=== PATIENT | female | born 1935 | race Caucasian/White ===

== ENCOUNTER → 2016-05-10 | Outpatient (CLI) | payer MEDICARE, BC ==
[2016-05-10] MEDS: Iopamidol 612 MG/ML 100 ML Bottle IVPUSH ONE (11:00)
[2016-05-10] MEDS: Sodium Chloride 0.9% 50 ML SDV FLUSH SCH (11:00)
== END ==
LOC: KA.CT 09:36
PROVIDERS: ATTEND Internal Medicine Hematology & Oncology
DX: R13.10 Dysphagia, unspecified (principal); K21.9 Gastro-esophageal reflux disease without esophagitis; C15.9 Malignant neoplasm of esophagus, unspecified; K22.8 Other specified diseases of esophagus; K57.90 Diverticulosis of intestine, part unspecified, without perforation or abscess without bleeding
CPT/HCPCS: 71260; 74177; Q9967

== ENCOUNTER 2018-05-26 17:00 | Inpatient (IN) | payer MEDICARE, BC ==
[2018-05-26] MEDS ORDERED: Sodium Chloride 0.9% 10 ML Syringe FLUSH PRN (17:51)
[2018-05-26] MEDS ORDERED: traMADol 50 MG Tab PO PRN (18:03)
[2018-05-26] MEDS: cefTRIAXone 1 GM Vial IVPUSH SCH (19:53)
[2018-05-27] MEDS: Acetaminophen 325 MG Tab PO PRN ×2 (06:01→20:56)
[2018-05-27 08:37] LABS: ANION GAP 12.6 mmol/L (5-15); CHLORIDE,CL 106 mmol/L (98-115); SODIUM,NA 140 mmol/L (136-145)
[2018-05-27] MEDS: Omeprazole 20 MG Cap.CR PO SCH (08:37)
[2018-05-27] MEDS: Cholecalciferol (Vitamin D3) 1,000 Unit Tab PO SCH (08:38)
[2018-05-27] MEDS: Escitalopram 10 MG Tab PO SCH (08:38)
--- NOTE | 2018-05-27 11:23 | PCM.PN ---
- General Info Date of Service: 05/27/18 Functional Status: Reports: Pain Controlled, Tolerating Diet. Denies: New Symptoms - Review of Systems General: Denies: Fever, Chills HEENT: Reports: Glasses Pulmonary: Denies: Shortness of Breath Cardiovascular: Reports: Edema. Denies: Chest Pain Musculoskeletal: Reports: Leg Pain (left medial ankle) Skin: Reports: Other (erythema and edema to left lower leg/ankle) Neurological: Denies: Headache Psychiatric: Reports: No Symptoms - Patient Data Vitals - Most Recent: Last Vital Signs Temp 98.1 F 05/27/18 09:00 Pulse 65 05/27/18 09:00 Resp 16 05/27/18 09:00 BP 88/54 L 05/27/18 09:00 Pulse Ox 96 05/27/18 09:00 Weight - Most Recent: 142 lb 12.8 oz I&O - Last 24 Hours: Intake & Output 05/26/18 05/27/18 05/27/18 22:59 06:59 14:59 Intake Total 240 350 Balance 240 350 Lab Results Last 24 Hours: Laboratory Results - last 24 hr 05/26/18 05/26/18 05/27/18 Range/Units 18:10 18:10 07:30 WBC (5.00-10.00) 10^3/uL RBC (3.80-5.50) 10^6/uL Hgb (12.0-16.0) g/dL Hct (37.0-47.0) % MCV (82.0-92.0) fL MCH (27.0-31.0) pg MCHC (32.0-36.0) g/dL RDW (11.5-14.5) % Plt Count (150-400) 10^3/uL MPV (7.4-10.4) fL Immature Gran % (Auto) (0.0-5.0) % Neut % (Auto) (50.0-70.0) % Lymph % (Auto) (20.0-40.0) % [place] % (Auto) (2.0-8.0) % Eos % (Auto) (1.0-3.0) % Baso % (Auto) (0.0-1.0) % Immature Gran # (Auto) (0.00-0.50) 10^3/uL Neut # (Auto) (2.50-7.00) 10^3/uL Lymph # (Auto) (1.00-4.00) 10^3/uL [place] # (Auto) (0.10-0.80) 10^3/uL Eos # (Auto) (0.10-0.30) 10^3/uL Baso # (Auto) (0.00-0.10) 10^3/uL ESR 60 H (0-20) mm/hr Sodium 140 (136-145) mmol/L Potassium 4.3 (3.3-5.3) mmol/L Chloride 106 (98-115) mmol/L Carbon Dioxide 25.7 (21.0-32.0) mmol/L Anion Gap 12.6 (5-15) mmol/L BUN 19 (6-25) mg/dL Creatinine 0.83 (0.51-1.17) mg/dL Est Cr Clr Drug Dosing 48.64 mL/min Estimated GFR (MDRD) > 60 mL/min Glucose 85 (75 - 99) mg/dL Lactic Acid 1.1 (0.4-2.0) mmol/L Calcium 8.8 (8.7-10.3) mg/dL Total Bilirubin 0.5 (0.2-1.0) mg/dL AST 19 (15-37) U/L ALT 18 (12-78) U/L Alkaline Phosphatase 93 (46-116) IU/L Total Protein 5.6 L (6.4-8.2) g/dL Albumin 2.71 L (3.00-4.80) g/dL 05/27/18 Range/Units 07:30 WBC 5.98 (5.00-10.00) 10^3/uL RBC 3.28 L (3.80-5.50) 10^6/uL Hgb 10.7 L (12.0-16.0) g/dL Hct 31.9 L (37.0-47.0) % MCV 97.3 H (82.0-92.0) fL MCH 32.6 H (27.0-31.0) pg MCHC 33.5 (32.0-36.0) g/dL RDW 13.3 (11.5-14.5) % Plt Count 147 L (150-400) 10^3/uL MPV 10.9 H (7.4-10.4) fL Immature Gran % (Auto) 0.2 (0.0-5.0) % Neut % (Auto) 73.7 H (50.0-70.0) % Lymph % (Auto) 15.2 L (20.0-40.0) % [place] % (Auto) 8.9 H (2.0-8.0) % Eos % (Auto) 1.7 (1.0-3.0) % Baso % (Auto) 0.3 (0.0-1.0) % Immature Gran # (Auto) 0.01 (0.00-0.50) 10^3/uL Neut # (Auto) 4.41 (2.50-7.00) 10^3/uL Lymph # (Auto) 0.91 L (1.00-4.00) 10^3/uL [place] # (Auto) 0.53 (0.10-0.80) 10^3/uL Eos # (Auto) 0.10 (0.10-0.30) 10^3/uL Baso # (Auto) 0.02 (0.00-0.10) 10^3/uL ESR (0-20) mm/hr Sodium (136-145) mmol/L Potassium (3.3-5.3) mmol/L Chloride (98-115) mmol/L Carbon Dioxide (21.0-32.0) mmol/L Anion Gap (5-15) mmol/L BUN (6-25) mg/dL Creatinine (0.51-1.17) mg/dL Est Cr Clr Drug Dosing mL/min Estimated GFR (MDRD) mL/min Glucose (75 - 99) mg/dL Lactic Acid (0.4-2.0) mmol/L Calcium (8.7-10.3) mg/dL Total Bilirubin (0.2-1.0) mg/dL AST (15-37) U/L ALT (12-78) U/L Alkaline Phosphatase (46-116) IU/L Total Protein (6.4-8.2) g/dL Albumin (3.00-4.80) g/dL Med Orders - Current: Current Medications Acetaminophen (Tylenol) 650 mg PO Q4H PRN PRN Reason: Pain Last Admin: 05/27/18 06:01 Dose: 650 mg Ceftriaxone Sodium (Rocephin) 1 gm IVPUSH Q24H REPLACED BY [facility] Last Admin: 05/26/18 19:53 Dose: 1 gm Cholecalciferol (Vitamin D3) 2,000 units PO DAILY REPLACED BY [facility] Last Admin: 05/27/18 08:38 Dose: 2,000 units Escitalopram Oxalate (Lexapro) 10 mg PO DAILY REPLACED BY [facility] Last Admin: 05/27/18 08:38 Dose: 10 mg Omeprazole (Omeprazole) 20 mg PO DAILY REPLACED BY [facility] Last Admin: 05/27/18 08:37 Dose: 20 mg Sodium Chloride (Saline Flush) 10 ml FLUSH Q8HR PRN PRN Reason: keep vein open Tramadol HCl (Ultram) 50 mg PO Q6H PRN PRN Reason: leg pain Last Admin: 05/27/18 00:15 Dose: 50 mg - Exam Quality Assessment: DVT Prophylaxis (score of 6-lovenox 40 mg SQ daily). No: Supplemental Oxygen, Skin Breakdown General: Alert, Oriented, Cooperative, No Acute Distress Lungs: Clear to Auscultation, Normal Respiratory Effort Cardiovascular: Regular Rate, Regular Rhythm, No Murmurs Extremities: Other (left lower leg (mid calf to dorsal midfoot) tenderness elicited with 1+ edema and moderate erythema; erythema present to mostly medial malleolus, no streaking.) Skin: Warm, Dry, Other (see extremity documentation). No: Ecchymosis Wound/Incisions: Erythema Improving, Other (No open wound present) Neurological: Normal Speech Psy/Mental Status: Alert, Normal Affect, Normal Mood - Problem List Review Problem List Initiated/Reviewed/Updated: Yes - My Orders Last 24 Hours: My Active Orders 05/26/18 17:51 Patient Status [ADT] Routine Oxygen Therapy [RC] .PRN Up With Assistance [RC] ASDIRECTED VTE/DVT Education [RC] PER UNIT ROUTINE Vital Signs [RC] 1900,2300,0300,0700,0900,1100,1500 Sodium Chloride 0.9% [Saline Flush] 10 ml FLUSH Q8HR PRN Saline Lock Insert [OM.PC] Routine Resuscitation Status Routine 05/26/18 17:56 Intake and Output [RC] 1400,2200,0600 05/26/18 18:03 traMADol [Ultram] 50 mg PO Q6H PRN 05/26/18 18:15 cefTRIAXone [Rocephin] 1 gm IVPUSH Q24H 05/26/18 Dinner Regular Diet [DIET] 05/27/18 05:26 Acetaminophen [Tylenol] 650 mg PO Q4H PRN 05/27/18 09:00 Cholecalciferol (Vitamin D3) [Vitamin D3] 2,000 units PO DAILY Escitalopram [Lexapro] 10 mg PO DAILY Omeprazole 20 mg PO DAILY 05/28/18 05:11 CBC WITH AUTO DIFF [HEME] AM - Plan Plan:: HPI: This is an 82 year old female who presented to the [facility] yesterday with concerns of worsening redness, swelling, and pain to her left inner ankle. Symptoms initially started on Tuesday night (05/20/18) where she awoke in the middle of the night and noted it was painful and red. No history of injury or trauma. She was first evaluated on 05/22/18 by Mary Jackson CNP at the clinic and found to have a normal ESR and uric acid level. She was given naproxen to take BID. She had been doing this, but the pain and redness were increasing. Patient was evaluated by Autumn Zaragoza PA-C yesterday and found to have an ESR of 52, CRP 156.4, WBC 7.5 no left shift, GFR 55, Creatinine 0.97. X- ray of the ankle revealed no acute fracture or dislocation, extensive soft tissue swelling, degenerative changes of tarsal bones; if ongoing symptoms repeat x-ray in 7-10 days. Patient was admitted for IV antibiotics and further monitoring. Update on rounds: Patient feels the redness has improved some around the ankle, but has moved up the leg slightly. No fevers or chills. Did experience some pain last night for which she tried tramadol with no relief. She took tylenol around 0500 and reported improvement in pain. Primary Assessment/Plan: Acute left ankle cellulitis. WBC 5.8 with left shift. CMP unremarkable. ESR 60 and lactic acid 1.1 on admission. Nursing to awa area with marker. Continue IV rocephin 1 gm daily. Continue tylenol PRN for pain. Repeat CBC, ESR, and CRP in AM. Secondary Assessment/Plan: History of squamous cell carcinoma of esophagus. Not currently on any treatments , however did consult with acquisition cost estimator oncologist, Dr. De Jesus, regarding current status. He notes that since she has been in remission for a few years she can be treated as a "normal" cellulitis patient. HTN, history. Anxiety. Continue lexapro. GERD. Continue omeprazole. Osteoporosis. On prolia and vitamin D. Calcium 8.8. Consider adding calcium supplementation. DEXA (2017) osteopenia. DVT prophylaxis: Score 6. Lovenox 40 mg SQ daily. Overall plan: Continue with IV rocephin. Nursing to awa area of redness for continued monitoring. Repeat labs in AM.
[2018-05-27] MEDS: Enoxaparin 40 MG/0.4 ML Syringe SUBCUT SCH (14:54)
[2018-05-27] MEDS: cefTRIAXone 1 GM Vial IVPUSH SCH (18:07)
[2018-05-28] MEDS: Omeprazole 20 MG Cap.CR PO SCH (08:34)
[2018-05-28] MEDS: Escitalopram 10 MG Tab PO SCH (08:35)
[2018-05-28] MEDS: Cholecalciferol (Vitamin D3) 1,000 Unit Tab PO SCH (08:35)
[2018-05-28] MEDS: Enoxaparin 40 MG/0.4 ML Syringe SUBCUT SCH (12:14)
--- NOTE | 2018-05-28 12:18 | PCM.PN ---
- General Info Date of Service: 05/28/18 Functional Status: Reports: Pain Controlled, Tolerating Diet, Urinating - Review of Systems General: Denies: Fever, Chills Pulmonary: Denies: Shortness of Breath Cardiovascular: Reports: Edema (LLE). Denies: Chest Pain Skin: Reports: Other (left medial ankle: erythema improving, edema worsening; left calf not as "tight") Psychiatric: Reports: Anxiety - Patient Data Vitals - Most Recent: Last Vital Signs Temp 98.3 F 05/28/18 11:00 Pulse 71 05/28/18 11:00 Resp 16 05/28/18 11:00 BP 115/70 05/28/18 11:00 Pulse Ox 98 05/28/18 11:00 Weight - Most Recent: 142 lb 12.8 oz I&O - Last 24 Hours: Intake & Output 05/27/18 05/28/18 05/28/18 22:59 06:59 14:59 Intake Total 240 120 Balance 240 120 Lab Results Last 24 Hours: Laboratory Results - last 24 hr 05/28/18 05/28/18 Range/Units 08:00 08:00 WBC 4.41 L (5.00-10.00) 10^3/uL RBC 3.62 L (3.80-5.50) 10^6/uL Hgb 11.9 L (12.0-16.0) g/dL Hct 35.5 L (37.0-47.0) % MCV 98.1 H (82.0-92.0) fL MCH 32.9 H (27.0-31.0) pg MCHC 33.5 (32.0-36.0) g/dL RDW 13.0 (11.5-14.5) % Plt Count 158 (150-400) 10^3/uL MPV 11.0 H (7.4-10.4) fL Immature Gran % (Auto) 0.0 (0.0-5.0) % Neut % (Auto) 69.4 (50.0-70.0) % Lymph % (Auto) 17.0 L (20.0-40.0) % [place] % (Auto) 10.9 H (2.0-8.0) % Eos % (Auto) 2.5 (1.0-3.0) % Baso % (Auto) 0.2 (0.0-1.0) % Immature Gran # (Auto) 0.00 (0.00-0.50) 10^3/uL Neut # (Auto) 3.06 (2.50-7.00) 10^3/uL Lymph # (Auto) 0.75 L (1.00-4.00) 10^3/uL [place] # (Auto) 0.48 (0.10-0.80) 10^3/uL Eos # (Auto) 0.11 (0.10-0.30) 10^3/uL Baso # (Auto) 0.01 (0.00-0.10) 10^3/uL ESR 60 H (0-20) mm/hr C-Reactive Protein 16.0 H (0.0-0.9) mg/dL Med Orders - Current: Current Medications Acetaminophen (Tylenol) 650 mg PO Q4H PRN PRN Reason: Pain Last Admin: 05/27/18 20:56 Dose: 650 mg Cholecalciferol (Vitamin D3) 2,000 units PO DAILY [facility] Last Admin: 05/28/18 08:35 Dose: 2,000 units Enoxaparin Sodium (Lovenox) 40 mg SUBCUT Q24H [facility] Last Admin: 05/27/18 14:54 Dose: 40 mg Escitalopram Oxalate (Lexapro) 10 mg PO DAILY [facility] Last Admin: 05/28/18 08:35 Dose: 10 mg Omeprazole (Omeprazole) 20 mg PO DAILY [facility] Last Admin: 05/28/18 08:34 Dose: 20 mg Sodium Chloride (Saline Flush) 10 ml FLUSH Q8HR PRN PRN Reason: keep vein open Last Admin: 05/27/18 18:14 Dose: 10 ml Tramadol HCl (Ultram) 50 mg PO Q6H PRN PRN Reason: leg pain Last Admin: 05/27/18 00:15 Dose: 50 mg Trimethoprim/Sulfamethoxazole (Septra Ds) 1 tab PO BID [facility] Discontinued Medications Ceftriaxone Sodium (Rocephin) 1 gm IVPUSH Q24H [facility] Last Admin: 05/27/18 18:07 Dose: 1 gm - Exam Quality Assessment: DVT Prophylaxis (Lovenox). No: Supplemental Oxygen General: Alert, Oriented, Cooperative, No Acute Distress Lungs: Clear to Auscultation, Normal Respiratory Effort Cardiovascular: Regular Rate, Regular Rhythm, No Murmurs Extremities: Other (left medial ankle: mild erythema, blanches, moderate edema that extends down to toes and up to mid tibia/fibula, no streaking, warm to touch, no open wound or drainage, tender, ROM intact) Skin: Warm, Dry, Other (see above) Wound/Incisions: Other (No wound.) Neurological: Normal Speech Psy/Mental Status: Alert, Normal Affect, Anxious - Problem List Review Problem List Initiated/Reviewed/Updated: Yes - My Orders Last 24 Hours: My Active Orders 05/27/18 12:00 Enoxaparin [Lovenox] 40 mg SUBCUT Q24H 05/28/18 12:15 Sulfamethoxazole/Trimethoprim [Septra DS] 1 tab PO BID 05/29/18 05:11 CBC WITH AUTO DIFF [HEME] AM ESR [SEDIMENTATION RATE MANUAL] [HEME] AM - Plan Plan:: HPI: This is an 82 year old female who presented to the [facility] yesterday with concerns of worsening redness, swelling, and pain to her left inner ankle. Symptoms initially started on Tuesday night (05/20/18) where she awoke in the middle of the night and noted it was painful and red. No history of injury or trauma. She was first evaluated on 05/22/18 by Mary Jackson CNP at the clinic and found to have a normal ESR and uric acid level. She was given naproxen to take BID. She had been doing this, but the pain and redness were increasing. Patient was evaluated by Autumn Zaragoza PA-C yesterday and found to have an ESR of 52, CRP 156.4, WBC 7.5 no left shift, GFR 55, Creatinine 0.97. X- ray of the ankle revealed no acute fracture or dislocation, extensive soft tissue swelling, degenerative changes of tarsal bones; if ongoing symptoms repeat x-ray in 7-10 days. Patient was admitted for IV antibiotics and further monitoring. Update on rounds: Patient reports she did have a low-grade fever last night ( 99.1-100.2F) but it came down without tylenol. She feels the redness has improved, but the swelling has worsened. She is anxious about becoming septic. Primary Assessment/Plan: Acute left ankle cellulitis. WBC 4.0, no left shift. ESR same at 60. CRP 16.0, however different test compared to outpatient clinic which noted a CRP of 156.4. Will de-escalate antibiotic today from rocephin IV to bactrim-DS 1 tab po BID in hopes of providing more broad spectrum coverage and the intent of discharging tomorrow. Repeat CBC, CRP, and ESR in AM. Secondary Assessment/Plan: History of squamous cell carcinoma of esophagus. Not currently on any treatments , however did consult with ui application developer oncologist, Dr. De Jesus, regarding current status. He notes that since she has been in remission for a few years she can be treated as a "normal" cellulitis patient. HTN, history. Anxiety. Continue lexapro. GERD. Continue omeprazole. Osteoporosis. On prolia and vitamin D. Calcium 8.8. Consider adding calcium supplementation. DEXA (2017) osteopenia. DVT prophylaxis: Score 6. Lovenox 40 mg SQ daily. Overall plan: De-escalate antibiotics to oral and monitor overnight with possible discharge to home tomorrow.
[2018-05-28] MEDS: Sulfamethoxazole/Trimethoprim 800-160 MG Tab PO SCH ×2 (13:12→19:59)
[2018-05-28] MEDS: Acetaminophen 325 MG Tab PO PRN (20:54)
[2018-05-29] MEDS: Escitalopram 10 MG Tab PO SCH (08:52)
[2018-05-29] MEDS: Sulfamethoxazole/Trimethoprim 800-160 MG Tab PO SCH (08:52)
[2018-05-29] MEDS: Cholecalciferol (Vitamin D3) 1,000 Unit Tab PO SCH (08:52)
[2018-05-29] MEDS: Omeprazole 20 MG Cap.CR PO SCH (08:52)
--- NOTE | 2018-05-29 10:20 | PCM.DCSUM1 ---
Discharge Summary - Hospital Course Brief History: This is an 82 year old female who presented to the [facility] with concerns of worsening left ankle erythema, edema, and pain. Symptoms initially started on Tuesday night (05/20/18) where she awoke in the middle of the night and noted it was painful and red. No history of injury or trauma. She was first evaluated on 05/22/18 by Mary Jackson CNP at the clinic and found to have a normal ESR and uric acid level. She was given naproxen to take BID. She had been doing this, but the pain and redness were increasing. Patient was evaluated by Autumn Zaragoza PA-C yesterday and found to have an ESR of 52, CRP 156.4, WBC 7.5 no left shift, GFR 55, Creatinine 0.97. X-ray of the ankle revealed no acute fracture or dislocation, extensive soft tissue swelling, degenerative changes of tarsal bones; if ongoing symptoms repeat x-ray in 7-10 days. Patient was admitted for IV antibiotics and further monitoring. - Discharge Data Discharge Date: 05/29/18 Discharge Disposition: Home, Self-Care 01 Condition: Good - Patient Summary/Data Complications: None Consults: Dr. De Jesus, [place] oncologist Labs Pending at D/C: None - Patient Instructions Diet: Regular Diet as Tolerated Activity: As Tolerated, Elevate Extremity Showering/Bathing: May Shower Notify Provider of: Fever, Increased Pain, Swelling and Redness (increased amount), Drainage (or open wound) - Discharge Plan *PRESCRIPTION DRUG MONITORING PROGRAM REVIEWED*: Not Applicable *COPY OF PRESCRIPTION DRUG MONITORING REPORT IN PATIENT AMANDA: Not Applicable Prescriptions/Med Rec: Sulfamethoxazole/Trimethoprim [Septra DS] 1 tab PO BID 7 Days #14 tablet Home Medications: Home Meds Escitalopram [Lexapro] 10 mg PO DAILY 01/26/14 [History] Omeprazole Magnesium [Prilosec Otc] 20 mg PO DAILY 05/03/16 [History] Cholecalciferol (Vitamin D3) [Vitamin D3] 2,000 unit PO DAILY 05/26/18 [History] Denosumab [Prolia] 60 mg SQ ASDIRECTED 05/26/18 [History] Acetaminophen [Tylenol] 650 mg PO Q4H PRN tablet 05/29/18 [Rx] Sulfamethoxazole/Trimethoprim [Septra DS] 1 tab PO BID 7 Days #14 tablet [Rx] Referrals: Autumn Zaragoza PA-C [Primary Care Provider] - Colleen Rivera MANUFACTURER'S SERVICE REPRESENTATIVE [Nurse Practitioner] - (Follow-up with myself or Autumn Zaragoza PA-C at the [facility] this week. ) - Discharge Summary/Plan Comment DC Time >30 min.: Yes Discharge Summary/Plan Comment: Date of admission: 05/26/18 Date of discharge: 05/29/18 Admitting diagnosis: Primary: Left medial ankle cellulitis Secondary: History of squamous cell carcinoma of esophagus, history of HTN, anxiety, GERD, osteoporosis Final diagnosis: Primary: Left medial ankle cellulitis, improving Secondary: History of squamous cell carcinoma of esophagus, history of HTN, anxiety, GERD, osteoporosis Procedures performed: None Hospital Course: The patient's hospital course progressed as expected. Patient received IV rocephin 1 gm daily x 2 doses, and then was switched to oral Bactrim the day prior to discharge with notable improvement in erythema and edema the day of discharge. Patient had low grade fevers and the highest was 100.7F. She required tylenol for pain and had relief. She remained hemodynamically stable during her stay. She was placed on lovenox for DVT prophylaxis. Discharge labs included WBC 4.45 with no left shift, ESR 55. New medications on discharge: -Bactrim DS 1 tab po BID x 7 days -Tylenol 650 mg po every 4 hours PRN pain Changes to home medications on discharge: None Regular home medications on discharge: -Lexapro 10 mg po daily -Omeprazole 20 mg po daily -Vitamin D3 2000 units po daily -Prolia 60 mg SQ q6 months Condition, Treatment, and Final Disposition: The patient is in stable condition at the time of discharge. She will be discharged home today with her son nearby. The patient will be seen in follow-up at the [facility] this week. Considerations at follow-up would include repeating ESR and CRP levels and considering adding calcium 600 mg po BID to current regimen for osteopenia. - General Info Functional Status: Reports: Pain Controlled, Ambulating, Urinating. Denies: New Symptoms - Review of Systems General: Reports: Fever (low grade 100.7F overnight). Denies: Weakness, Fatigue , Malaise, Chills HEENT: Denies: Headaches Pulmonary: Denies: Shortness of Breath Cardiovascular: Denies: Chest Pain Musculoskeletal: Reports: Other (left lower leg, medial ankle, and top of foot pain, erythema, and edema--improving) Skin: Reports: Other (erythema of left lower leg and ankle improving) Neurological: Denies: Dizziness, Headache Psychiatric: Reports: No Symptoms - Patient Data Vitals - Most Recent: Last Vital Signs Temp 99.1 F 05/29/18 06:27 Pulse 60 05/29/18 06:27 Resp 18 05/29/18 06:27 BP 98/54 L 05/29/18 06:27 Pulse Ox 98 05/29/18 06:27 Weight - Most Recent: 142 lb 12.8 oz I&O - Last 24 hours: Intake & Output 05/28/18 05/29/18 05/29/18 22:59 06:59 14:59 Intake Total 350 120 Balance 350 120 Lab Results - Last 24 hrs: Laboratory Results - last 24 hr 05/28/18 05/29/18 Range/Units 08:00 07:25 WBC 4.45 L (5.00-10.00) 10^3/uL RBC 3.84 (3.80-5.50) 10^6/uL Hgb 12.5 (12.0-16.0) g/dL Hct 38.0 (37.0-47.0) % MCV 99.0 H (82.0-92.0) fL MCH 32.6 H (27.0-31.0) pg MCHC 32.9 (32.0-36.0) g/dL RDW 13.0 (11.5-14.5) % Plt Count 189 (150-400) 10^3/uL MPV 10.3 (7.4-10.4) fL Immature Gran % (Auto) 0.0 (0.0-5.0) % Neut % (Auto) 60.7 (50.0-70.0) % Lymph % (Auto) 22.5 (20.0-40.0) % [place] % (Auto) 12.8 H (2.0-8.0) % Eos % (Auto) 3.6 H (1.0-3.0) % Baso % (Auto) 0.4 (0.0-1.0) % Immature Gran # (Auto) 0.00 (0.00-0.50) 10^3/uL Neut # (Auto) 2.70 (2.50-7.00) 10^3/uL Lymph # (Auto) 1.00 (1.00-4.00) 10^3/uL [place] # (Auto) 0.57 (0.10-0.80) 10^3/uL Eos # (Auto) 0.16 (0.10-0.30) 10^3/uL Baso # (Auto) 0.02 (0.00-0.10) 10^3/uL ESR 60 H 55 H (0-20) mm/hr Med Orders - Current: Current Medications Acetaminophen (Tylenol) 650 mg PO Q4H PRN PRN Reason: Pain Last Admin: 05/28/18 20:54 Dose: 650 mg Cholecalciferol (Vitamin D3) 2,000 units PO DAILY [facility] Last Admin: 05/29/18 08:52 Dose: 2,000 units Enoxaparin Sodium (Lovenox) 40 mg SUBCUT Q24H [facility] Last Admin: 05/28/18 12:14 Dose: 40 mg Escitalopram Oxalate (Lexapro) 10 mg PO DAILY [facility] Last Admin: 05/29/18 08:52 Dose: 10 mg Omeprazole (Omeprazole) 20 mg PO DAILY [facility] Last Admin: 05/29/18 08:52 Dose: 20 mg Sodium Chloride (Saline Flush) 10 ml FLUSH Q8HR PRN PRN Reason: keep vein open Last Admin: 05/27/18 18:14 Dose: 10 ml Tramadol HCl (Ultram) 50 mg PO Q6H PRN PRN Reason: leg pain Last Admin: 05/27/18 00:15 Dose: 50 mg Trimethoprim/Sulfamethoxazole (Septra Ds) 1 tab PO BID [facility] Last Admin: 05/29/18 08:52 Dose: 1 tab Discontinued Medications Ceftriaxone Sodium (Rocephin) 1 gm IVPUSH Q24H [facility] Last Admin: 05/27/18 18:07 Dose: 1 gm - Exam Quality Assessment: Reports: DVT Prophylaxis (lovenox). Denies: Supplemental Oxygen, Skin Breakdown General: Reports: Alert, Oriented, Cooperative, No Acute Distress Lungs: Reports: Clear to Auscultation, Normal Respiratory Effort Cardiovascular: Reports: Regular Rate, Regular Rhythm, No Murmurs Extremities: Other (Mild erythema of left lower leg from mid-yanez to mid foot with most prominent erythema at medial ankle; moderate edema at ankle and foot, no open wound, tender, warm to touch. ) Skin: Reports: Warm, Dry, Other (see above) Neurological: Reports: Normal Speech Psy/Mental Status: Reports: Alert, Normal Affect, Normal Mood
[2018-05-29 11:40] VITALS: BP 94/54
[2018-05-29] MEDS: Enoxaparin 40 MG/0.4 ML Syringe SUBCUT SCH (12:05)
== END 2018-05-29 13:15 | disposition home or self-care (01) | DRG 603 ==
LOC: KA.MS 17:00
PROVIDERS: ADMIT Physician Assistant Medical; ATTEND Family Medicine
DX: L03.116 Cellulitis of left lower limb (principal); F41.9 Anxiety disorder, unspecified; M85.80 Other specified disorders of bone density and structure, unspecified site; M81.0 Age-related osteoporosis without current pathological fracture; I10 Essential (primary) hypertension; K21.9 Gastro-esophageal reflux disease without esophagitis; Z79.899 Other long term (current) drug therapy; Z85.01 Personal history of malignant neoplasm of esophagus; Z88.1 Allergy status to other antibiotic agents; Z88.5 Allergy status to narcotic agent
CPT/HCPCS: 36415; 80053; 83605; 85025; 85651; 86140; A9270-GY; J0696; J1650

== ENCOUNTER 2022-02-22 13:32 | Emergency (ER) | payer MEDICARE, BC ==
[2022-02-22] MEDS ORDERED: Sodium Chloride 0.9% 10 ML Syringe FLUSH PRN (13:47)
[2022-02-22 14:00] VITALS: BP 165/84; PULSE 84
[2022-02-22 14:25] LABS: ANION GAP 8.8 mmol/L (5-15)
== END 2022-02-22 15:00 | disposition home or self-care (01) ==
LOC: KA.ED 13:32
DX: R42 Dizziness and giddiness (principal); Z88.5 Allergy status to narcotic agent; Z88.1 Allergy status to other antibiotic agents
CPT/HCPCS: 36415; 80053; 84484; 85025; 93005; 93010; 99284; J3490

== ENCOUNTER 2023-12-13 06:16 | Emergency (ER) | payer MEDICARE, BC ==
[2023-12-13 06:43] LABS: BASOPHILS ABSOLUTE AUTO 0.01 10^3/uL (0.00-0.10); BASOPHILS PERCENT AUTO 0.1 % (0.0-1.0); HEMATOCRIT 39.4 % (37.0-47.0); HEMOGLOBIN 12.8 g/dL (12.0-16.0); IMMATURE GRAN ABSOLUTE AUTO 0.02 10^3/uL (0.00-0.50); IMMATURE GRAN PERCENT AUTO 0.2 % (0.0-5.0); LYMPHOCYTES PERCENT AUTO 8.5 % (20.0-40.0); MEAN CORPUSCULAR HEMOGLOBIN 32.5 pg (27.0-31.0); MEAN CORPUSCULAR HGB CONC 32.5 g/dL (32.0-36.0); MONOCYTES ABSOLUTE AUTO 0.45 10^3/uL (0.10-0.80); MONOCYTES PERCENT AUTO 4.8 % (2.0-8.0); NEUTROPHILS ABSOLUTE AUTO 8.16 10^3/uL (2.50-7.00); NEUTROPHILS PERCENT AUTO 86.4 % (50.0-70.0); PLATELET COUNT,PLT 204 10^3/uL (150-400); RED BLOOD CELL COUNT 3.94 10^6/uL (3.80-5.50); RED CELL DISTRIBUTION WIDTH 14.1 % (11.5-14.5); WHITE BLOOD CELL COUNT,WBC 9.44 10^3/uL (5.00-10.00)
[2023-12-13 06:47] VITALS: BP 114/44
[2023-12-13 06:55] VITALS: PULSE 35
[2023-12-13 07:02] LABS: ALBUMIN 3.18 g/dL (3.40-5.00); ANION GAP 16.7 mmol/L (5-15); BILIRUBIN TOTAL 1.1 mg/dL (0.2-1.0); CALCIUM 9.5 mg/dL (8.7-10.3); CARBON DIOXIDE,CO2 25.2 mmol/L (21.0-32.0); CREATININE 1.84 mg/dL (0.51-1.17); EST CRCL DRUG DOSING (CG) 17.36 mL/min; POTASSIUM,K 4.9 mmol/L (3.5-5.1); PROTEIN TOTAL,TP 6.6 g/dL (6.4-8.2)
[2023-12-13] MEDS ORDERED: Sodium Chloride 0.9% 10 ML Syringe FLUSH PRN ×2 (07:10→08:20)
[2023-12-13] MEDS: Sodium Chloride 0.9% 1,000 ML IV SCH (07:29)
[2023-12-13 07:34] LABS: INFLUENZA A NAA NEGATIVE (NEGATIVE); INFLUENZA B NAA NEGATIVE (NEGATIVE); RESPIRATORY SYNCYTIAL VIR NAA NEGATIVE (NEGATIVE)
[2023-12-13 07:35] LABS: CORONAVIRUS COVID-19 NAA NEGATIVE (NEGATIVE)
[2023-12-13] MEDS: Atropine 0.1 MG/ML 10 ML Syringe IVPUSH ONE (07:40)
[2023-12-13] MEDS: DOPamine/Dextrose 5%-Water 400 MG/250 ML BAG IV SCH (07:53)
[2023-12-13] MEDS: Ondansetron 4 MG/2 ML SDV IVPUSH ONE (08:04)
== END 2023-12-13 08:44 ==
LOC: KA.ED 06:16
DX: I44.2 Atrioventricular block, complete (principal); R53.1 Weakness; R42 Dizziness and giddiness; R79.89 Other specified abnormal findings of blood chemistry; Z79.899 Other long term (current) drug therapy; Z88.5 Allergy status to narcotic agent; Z88.1 Allergy status to other antibiotic agents
CPT/HCPCS: 0241U; 71045; 80053; 84484; 85025; 93010; 96365; 96375; 99284; 99285-25; J0461; J1265; J2405; J7030

== ENCOUNTER 2023-12-19 11:34 | Emergency (ER) | payer MEDICARE, BC ==
[2023-12-19 12:16] LABS: BASOPHILS ABSOLUTE AUTO 0.02 10^3/uL (0.00-0.10); BASOPHILS PERCENT AUTO 0.3 % (0.0-1.0); EOSINOPHILS ABSOLUTE AUTO 0.12 10^3/uL (0.10-0.30); HEMATOCRIT 37.1 % (37.0-47.0); HEMOGLOBIN 12.1 g/dL (12.0-16.0); IMMATURE GRAN ABSOLUTE AUTO 0.02 10^3/uL (0.00-0.50); IMMATURE GRAN PERCENT AUTO 0.3 % (0.0-5.0); LYMPHOCYTES ABSOLUTE AUTO 0.88 10^3/uL (1.00-4.00); LYMPHOCYTES PERCENT AUTO 14.8 % (20.0-40.0); MEAN CORPUSCULAR HGB CONC 32.6 g/dL (32.0-36.0); MEAN CORPUSCULAR VOLUME 98.1 fL (82.0-92.0); MEAN PLATELET VOLUME 9.8 fL (7.4-10.4); MONOCYTES ABSOLUTE AUTO 0.83 10^3/uL (0.10-0.80); MONOCYTES PERCENT AUTO 13.9 % (2.0-8.0); NEUTROPHILS ABSOLUTE AUTO 4.09 10^3/uL (2.50-7.00); NEUTROPHILS PERCENT AUTO 68.7 % (50.0-70.0); PLATELET COUNT,PLT 217 10^3/uL (150-400); RED BLOOD CELL COUNT 3.78 10^6/uL (3.80-5.50); RED CELL DISTRIBUTION WIDTH 13.9 % (11.5-14.5); WHITE BLOOD CELL COUNT,WBC 5.96 10^3/uL (5.00-10.00)
[2023-12-19 12:35] LABS: ALANINE AMINOTRANSFERASE,ALT 21 U/L (14-63); ALBUMIN 2.78 g/dL (3.40-5.00); ALKALINE PHOSPHATASE 72 U/L (46-116); ANION GAP 9.7 mmol/L (5-15); ASPARTATE AMNIOTRANSFERASE,AST 25 U/L (15-37); BILIRUBIN TOTAL 0.3 mg/dL (0.2-1.0); BLOOD UREA NITROGEN,BUN 18 mg/dL (7-18); CALCIUM 9.9 mg/dL (8.7-10.3); CARBON DIOXIDE,CO2 28.8 mmol/L (21.0-32.0); CHLORIDE,CL 102 mmol/L (98-107); CREATININE 0.87 mg/dL (0.51-1.17); GLUCOSE RANDOM 89 mg/dL (70-140); POTASSIUM,K 4.5 mmol/L (3.5-5.1); PROTEIN TOTAL,TP 6.1 g/dL (6.4-8.2); SODIUM,NA 136 mmol/L (136-145)
[2023-12-19 12:37] LABS: ESTIMATED GFR 65 mL/min (>=60)
[2023-12-19 12:46] LABS: INR 1.1 (0.9-1.1); PROTHROMBIN TIME 11.6 SEC (9.3-12.2)
[2023-12-19 15:58] VITALS: BP 118/61; PULSE 70
== END 2023-12-19 14:24 | disposition home or self-care (01) ==
LOC: KA.ED 11:34
DX: R42 Dizziness and giddiness (principal); Z95.0 Presence of cardiac pacemaker; Z88.5 Allergy status to narcotic agent; Z88.1 Allergy status to other antibiotic agents
CPT/HCPCS: 36415; 71045; 80053; 84484; 85025; 85610; 86140; 93010; 99284; 99285

== ENCOUNTER 2024-04-25 10:04 | Inpatient (IN) | payer MEDICARE, BC ==
[2024-04-25 10:42] LABS: BASOPHILS ABSOLUTE AUTO 0.02 10^3/uL (0.00-0.10); BASOPHILS PERCENT AUTO 0.3 % (0.0-1.0); EOSINOPHILS ABSOLUTE AUTO 0.06 10^3/uL (0.10-0.30); EOSINOPHILS PERCENT AUTO 0.8 % (1.0-3.0); HEMATOCRIT 39.3 % (37.0-47.0); HEMOGLOBIN 12.8 g/dL (12.0-16.0); IMMATURE GRAN ABSOLUTE AUTO 0.01 10^3/uL (0.00-0.04); IMMATURE GRAN PERCENT AUTO 0.1 % (0.0-0.4); LYMPHOCYTES ABSOLUTE AUTO 0.61 10^3/uL (1.00-4.00); LYMPHOCYTES PERCENT AUTO 8.6 % (20.0-40.0); MEAN CORPUSCULAR HEMOGLOBIN 31.6 pg (27.0-31.0); MEAN CORPUSCULAR HGB CONC 32.6 g/dL (32.0-36.0); MEAN PLATELET VOLUME 9.8 fL (7.4-10.4); MONOCYTES ABSOLUTE AUTO 0.38 10^3/uL (0.10-0.80); MONOCYTES PERCENT AUTO 5.4 % (2.0-8.0); NEUTROPHILS PERCENT AUTO 84.8 % (50.0-70.0); PLATELET COUNT,PLT 228 10^3/uL (150-400); RED BLOOD CELL COUNT 4.05 10^6/uL (3.80-5.50); RED CELL DISTRIBUTION WIDTH 14.4 % (11.5-14.5); WHITE BLOOD CELL COUNT,WBC 7.08 10^3/uL (5.00-10.00)
[2024-04-25 10:51] LABS: ALBUMIN 3.35 g/dL (3.40-5.00); ANION GAP 13.6 mmol/L (5-15); BILIRUBIN TOTAL 0.6 mg/dL (0.2-1.0); CALCIUM 9.6 mg/dL (8.7-10.3); CARBON DIOXIDE,CO2 28.7 mmol/L (21.0-32.0); CREATININE 1.05 mg/dL (0.51-1.17); EST CRCL DRUG DOSING (CG) 31.81 mL/min; POTASSIUM,K 4.3 mmol/L (3.5-5.1); PROTEIN TOTAL,TP 7.1 g/dL (6.4-8.2)
[2024-04-25 10:54] LABS: LACTIC ACID 2.9 mmol/L (0.4-2.0)
[2024-04-25] MEDS: VANCOmycin 1.25 GM/250 ML 1.25 GM in Premix Bag 1 BAG IV ONE (11:49)
[2024-04-25] MEDS: Sodium Chloride 0.9% 1,000 ML IV ONE (11:50)
[2024-04-25] MEDS: VANCOmycin 1.5 GM/300 ML 1.5 GM in Premix Bag 1 BAG IV ONE (12:11)
[2024-04-25] MEDS ORDERED: Ondansetron 4 MG/2 ML SDV IV PRN (14:46)
[2024-04-25] MEDS ORDERED: Sennosides/Docusate Sodium 50-8.6 MG Tab PO PRN (14:46)
[2024-04-25] MEDS ORDERED: Morphine 2 MG/ML SYRINGE IVPUSH PRN (14:46)
[2024-04-25] MEDS ORDERED: Ondansetron 4 MG Tab.DIS PO PRN (14:46)
[2024-04-25] MEDS ORDERED: Naloxone 0.4 MG/ML SDV IVPUSH PRN (14:46)
[2024-04-25] MEDS ORDERED: oxyCODONE 5 MG Tab PO PRN (14:46)
[2024-04-25] MEDS ORDERED: Melatonin 3 MG Tab PO PRN (14:46)
[2024-04-25] MEDS ORDERED: Polyethylene Glycol 3350 Powder 17 GM Packet PO PRN (14:46)
[2024-04-25] MEDS: Cefepime 2 GM in Sodium Chloride 0.9% 50 ML IV SCH (19:12)
[2024-04-25] MEDS: Sodium Chloride 0.9% 250 ML IV SCH (19:13)
[2024-04-25] MEDS: Apixaban 5 MG Tab PO SCH (19:51)
[2024-04-25] MEDS ORDERED: Cefepime 1 GM in Sodium Chloride 0.9% 50 ML IV SCH (22:00)
[2024-04-25] MEDS: Acetaminophen 325 MG Tab PO PRN (22:42)
[2024-04-26] MEDS: Pantoprazole 40 MG Tab.CR PO SCH (05:43)
[2024-04-26 07:39] LABS: BASOPHILS ABSOLUTE AUTO 0.04 10^3/uL (0.00-0.10); BASOPHILS PERCENT AUTO 0.8 % (0.0-1.0); EOSINOPHILS ABSOLUTE AUTO 0.17 10^3/uL (0.10-0.30); EOSINOPHILS PERCENT AUTO 3.3 % (1.0-3.0); HEMATOCRIT 34.8 % (37.0-47.0); HEMOGLOBIN 11.5 g/dL (12.0-16.0); IMMATURE GRAN ABSOLUTE AUTO 0.01 10^3/uL (0.00-0.04); IMMATURE GRAN PERCENT AUTO 0.2 % (0.0-0.4); LYMPHOCYTES ABSOLUTE AUTO 0.73 10^3/uL (1.00-4.00); LYMPHOCYTES PERCENT AUTO 14.2 % (20.0-40.0); MEAN CORPUSCULAR HEMOGLOBIN 31.9 pg (27.0-31.0); MEAN CORPUSCULAR VOLUME 96.7 fL (82.0-92.0); MEAN PLATELET VOLUME 9.9 fL (7.4-10.4); MONOCYTES ABSOLUTE AUTO 0.45 10^3/uL (0.10-0.80); MONOCYTES PERCENT AUTO 8.7 % (2.0-8.0); NEUTROPHILS ABSOLUTE AUTO 3.75 10^3/uL (2.50-7.00); NEUTROPHILS PERCENT AUTO 72.8 % (50.0-70.0); PLATELET COUNT,PLT 209 10^3/uL (150-400); RED CELL DISTRIBUTION WIDTH 14.6 % (11.5-14.5); WHITE BLOOD CELL COUNT,WBC 5.15 10^3/uL (5.00-10.00)
[2024-04-26 07:56] LABS: CALCIUM 8.9 mg/dL (8.7-10.3); CARBON DIOXIDE,CO2 26.4 mmol/L (21.0-32.0); CREATININE 0.92 mg/dL (0.51-1.17); EST CRCL DRUG DOSING (CG) 37.9 mL/min; POTASSIUM,K 4.4 mmol/L (3.5-5.1)
[2024-04-26] MEDS: Escitalopram 10 MG Tab PO SCH (07:59)
[2024-04-26] MEDS ORDERED: Enoxaparin 40 MG/0.4 ML Syringe SUBCUT SCH ×2 (09:00)
[2024-04-26] MEDS: VANCOmycin 1.25 GM/250 ML 1.25 GM in Premix Bag 1 BAG IV SCH (12:10)
[2024-04-26] MEDS: Cefepime 1 GM in Sodium Chloride 0.9% 50 ML IV SCH (17:17)
[2024-04-26 18:31] VITALS: BP 123/69; PULSE 66
== END 2024-04-26 18:26 | DRG 603 ==
LOC: KA.ED 10:04 → KA.MS 12:33 → UNDOADMIN 13:05
PROVIDERS: ADMIT Hospitalist; ATTEND Hospitalist
PROC: 0H9FXZZ Drainage of Right Hand Skin, External Approach (ICD-10-PCS; principal; 2024-04-25)
DX: L03.011 Cellulitis of right finger (principal); L08.9 Local infection of the skin and subcutaneous tissue, unspecified; E87.20 Acidosis, unspecified; L98.2 Febrile neutrophilic dermatosis [Sweet]; D84.9 Immunodeficiency, unspecified; S60.031A Contusion of right middle finger without damage to nail, initial encounter; M19.90 Unspecified osteoarthritis, unspecified site; M48.02 Spinal stenosis, cervical region; H54.7 Unspecified visual loss; Z88.5 Allergy status to narcotic agent; X58.XXXA Exposure to other specified factors, initial encounter; Z98.890 Other specified postprocedural states; Z88.1 Allergy status to other antibiotic agents; Z88.8 Allergy status to other drugs, medicaments and biological substances; Z79.01 Long term (current) use of anticoagulants; Z79.899 Other long term (current) drug therapy; Z79.2 Long term (current) use of antibiotics; Z95.0 Presence of cardiac pacemaker; Z90.89 Acquired absence of other organs; Z90.710 Acquired absence of both cervix and uterus; Z86.718 Personal history of other venous thrombosis and embolism; Z85.01 Personal history of malignant neoplasm of esophagus; W31.89XA Contact with other specified machinery, initial encounter
CPT/HCPCS: 26010; 36415; 80048; 80053; 80202; 83605; 85025; 86140; 87040; 87070; 87205; 96365; 99284-25; A9270-GY; J0692; J3372; J3490; J7030; Q3014

== ENCOUNTER 2024-08-12 12:10 | Emergency (ER) | payer MEDICARE, BC ==
[2024-08-12] MEDS: Sulfamethoxazole/Trimethoprim 800-160 MG Tab PO ONE (12:53)
[2024-08-12 13:05] VITALS: BP 120/67; PULSE 70
== END 2024-08-12 13:04 | disposition home or self-care (01) ==
LOC: KA.ED 12:10
DX: L03.116 Cellulitis of left lower limb (principal); T14.8XXA Other injury of unspecified body region, initial encounter; Z88.8 Allergy status to other drugs, medicaments and biological substances; Z79.899 Other long term (current) drug therapy
CPT/HCPCS: 73590; 99283; 99284; A9270

== ENCOUNTER 2024-08-13 17:10 | Observation (INO) | payer MEDICARE, BC ==
[2024-08-13 17:32] LABS: BASOPHILS ABSOLUTE AUTO 0.02 10^3/uL (0.00-0.10); BASOPHILS PERCENT AUTO 0.3 % (0.0-1.0); EOSINOPHILS ABSOLUTE AUTO 0.06 10^3/uL (0.10-0.30); HEMATOCRIT 30.6 % (37.0-47.0); HEMOGLOBIN 10.1 g/dL (12.0-16.0); LYMPHOCYTES ABSOLUTE AUTO 1.11 10^3/uL (1.00-4.00); LYMPHOCYTES PERCENT AUTO 18.1 % (20.0-40.0); MEAN CORPUSCULAR HEMOGLOBIN 32.2 pg (27.0-31.0); MEAN CORPUSCULAR VOLUME 97.5 fL (82.0-92.0); MEAN PLATELET VOLUME 9.9 fL (7.4-10.4); MONOCYTES ABSOLUTE AUTO 0.72 10^3/uL (0.10-0.80); MONOCYTES PERCENT AUTO 11.7 % (2.0-8.0); NEUTROPHILS ABSOLUTE AUTO 4.22 10^3/uL (2.50-7.00); NEUTROPHILS PERCENT AUTO 68.9 % (50.0-70.0); PLATELET COUNT,PLT 181 10^3/uL (150-400); RED BLOOD CELL COUNT 3.14 10^6/uL (3.80-5.50); RED CELL DISTRIBUTION WIDTH 14.9 % (11.5-14.5); WHITE BLOOD CELL COUNT,WBC 6.13 10^3/uL (5.00-10.00)
[2024-08-13] MEDS: Sodium Chloride 0.9% 1,000 ML IV ONE (17:45)
[2024-08-13 17:47] LABS: ALBUMIN 3.19 g/dL (3.40-5.00); ANION GAP 10.7 mmol/L (5-15); BILIRUBIN TOTAL 0.4 mg/dL (0.2-1.0); CALCIUM 8.5 mg/dL (8.7-10.3); CARBON DIOXIDE,CO2 26.9 mmol/L (21.0-32.0); CREATININE 1.2 mg/dL (0.51-1.17); EST CRCL DRUG DOSING (CG) 30.28 mL/min; POTASSIUM,K 4.6 mmol/L (3.5-5.1); PROTEIN TOTAL,TP 6.5 g/dL (6.4-8.2)
[2024-08-13] MEDS: Ondansetron 4 MG/2 ML SDV IVPUSH ONE (17:47)
[2024-08-13] MEDS: Sodium Chloride 0.9% 1,000 ML IV SCH (18:57)
[2024-08-13 20:42] LABS: APPEARANCE,URINE CLEAR (CLEAR); BILIRUBIN,URINE NEGATIVE (NEGATIVE); COLOR,URINE YELLOW (YELLOW); GLUCOSE,URINE NEGATIVE (NEGATIVE); KETONES,URINE NEGATIVE (NEGATIVE); LEUKOCYTE ESTERASE,URINE TRACE (NEGATIVE); NITRITE,URINE NEGATIVE (NEGATIVE); OCCULT BLOOD,URINE NEGATIVE (NEGATIVE); PH,URINE 6.5 (5.0-9.0); PROTEIN,URINE NEGATIVE (NEGATIVE); UROBILINOGEN,URINE 0.2 E.U./dL (0.2-1.0)
[2024-08-13 20:47] LABS: BACTERIA,URINE NOT SEEN /HPF (NONE TO FEW); EPITHELIAL CELLS,URINE RARE /LPF; RBC,URINE NOT SEEN /HPF (0-5); WBC,URINE 0-5 /HPF (0-5)
[2024-08-13] MEDS ORDERED: Ondansetron 4 MG/2 ML SDV IV PRN (21:58)
[2024-08-13] MEDS ORDERED: Methotrexate 2.5 MG Tab PO SCH (22:00)
[2024-08-13] MEDS: ceFAZolin 1 GM in Sodium Chloride 0.9% 50 ML IV SCH (23:35)
[2024-08-13] MEDS: Apixaban 5 MG Tab PO ONE (23:36)
[2024-08-13] MEDS: Diphtheria,Pertussis(Acell),Tetanus Vaccine 0.5 ML Syringe IM ONE (23:37)
[2024-08-14] MEDS: Acetaminophen 325 MG Tab PO PRN (01:21)
[2024-08-14] MEDS ORDERED: ceFAZolin 1 GM in Sodium Chloride 0.9% 50 ML IV SCH (06:00)
[2024-08-14 07:25] LABS: BASOPHILS ABSOLUTE AUTO 0.02 10^3/uL (0.00-0.10); BASOPHILS PERCENT AUTO 0.4 % (0.0-1.0); EOSINOPHILS ABSOLUTE AUTO 0.09 10^3/uL (0.10-0.30); HEMATOCRIT 28.7 % (37.0-47.0); HEMOGLOBIN 9.3 g/dL (12.0-16.0); IMMATURE GRAN ABSOLUTE AUTO 0.01 10^3/uL (0.00-0.04); IMMATURE GRAN PERCENT AUTO 0.2 % (0.0-0.4); LYMPHOCYTES ABSOLUTE AUTO 1.09 10^3/uL (1.00-4.00); LYMPHOCYTES PERCENT AUTO 24.4 % (20.0-40.0); MEAN CORPUSCULAR HEMOGLOBIN 32.1 pg (27.0-31.0); MEAN CORPUSCULAR HGB CONC 32.4 g/dL (32.0-36.0); MEAN PLATELET VOLUME 9.9 fL (7.4-10.4); MONOCYTES ABSOLUTE AUTO 0.48 10^3/uL (0.10-0.80); MONOCYTES PERCENT AUTO 10.8 % (2.0-8.0); NEUTROPHILS ABSOLUTE AUTO 2.77 10^3/uL (2.50-7.00); NEUTROPHILS PERCENT AUTO 62.2 % (50.0-70.0); PLATELET COUNT,PLT 170 10^3/uL (150-400); RED CELL DISTRIBUTION WIDTH 15.3 % (11.5-14.5); WHITE BLOOD CELL COUNT,WBC 4.46 10^3/uL (5.00-10.00)
[2024-08-14 07:41] LABS: ANION GAP 8.3 mmol/L (5-15); CARBON DIOXIDE,CO2 27.3 mmol/L (21.0-32.0); CREATININE 1.04 mg/dL (0.51-1.17); EST CRCL DRUG DOSING (CG) 34.94 mL/min; POTASSIUM,K 4.6 mmol/L (3.5-5.1)
[2024-08-14 07:47] LABS: CALCIUM 7.8 mg/dL (8.7-10.3)
[2024-08-14] MEDS: Escitalopram 10 MG Tab PO SCH (08:33)
[2024-08-14] MEDS: Pantoprazole 40 MG Tab.CR PO SCH (08:33)
[2024-08-14] MEDS: Cyanocobalamin (Vitamin B12) 500 MCG Tab PO SCH (08:33)
[2024-08-14] MEDS: Apixaban 5 MG Tab PO SCH (08:33)
[2024-08-14] MEDS: Cholecalciferol (Vitamin D3) 25 MCG Tab PO SCH (08:33)
[2024-08-14] MEDS: Folic Acid 1 MG Tab PO SCH (08:35)
[2024-08-14] MEDS ORDERED: Colchicine 0.6 MG Tab PO SCH (09:00)
[2024-08-14 11:06] VITALS: BP 108/51; PULSE 63
== END 2024-08-14 11:50 | disposition home or self-care (01) ==
LOC: KA.ED 17:10 → KA.MS 20:17
PROVIDERS: ADMIT Internal Medicine; ATTEND Internal Medicine
DX: L03.116 Cellulitis of left lower limb (principal); N17.9 Acute kidney failure, unspecified; D64.9 Anemia, unspecified; I12.9 Hypertensive chronic kidney disease with stage 1 through stage 4 chronic kidney disease, or unspecified chronic kidney disease; N18.32 Chronic kidney disease, stage 3b; Z79.899 Other long term (current) drug therapy
CPT/HCPCS: 36415; 70450; 71045; 80048; 80053; 81001; 82550; 83880; 84484; 85025; 87086; 90471; 90715; 93005; 93010; 96361; 96365; 96374; 96375; 96376; 99223-GT; 99238-GT; 99284; 99285-25; A9270-GY; G0378; J0690; J2405; J7030; Q3014

== ENCOUNTER 2024-08-16 14:04 | Emergency (ER) | payer MEDICARE, BC ==
[2024-08-16 14:28] LABS: BASOPHILS ABSOLUTE AUTO 0.03 10^3/uL (0.00-0.10); BASOPHILS PERCENT AUTO 0.5 % (0.0-1.0); EOSINOPHILS ABSOLUTE AUTO 0.13 10^3/uL (0.10-0.30); EOSINOPHILS PERCENT AUTO 2.2 % (1.0-3.0); HEMATOCRIT 32.9 % (37.0-47.0); HEMOGLOBIN 10.5 g/dL (12.0-16.0); LYMPHOCYTES ABSOLUTE AUTO 1.05 10^3/uL (1.00-4.00); LYMPHOCYTES PERCENT AUTO 17.6 % (20.0-40.0); MEAN CORPUSCULAR HEMOGLOBIN 31.7 pg (27.0-31.0); MEAN CORPUSCULAR HGB CONC 31.9 g/dL (32.0-36.0); MEAN CORPUSCULAR VOLUME 99.4 fL (82.0-92.0); MEAN PLATELET VOLUME 9.6 fL (7.4-10.4); MONOCYTES ABSOLUTE AUTO 0.62 10^3/uL (0.10-0.80); MONOCYTES PERCENT AUTO 10.4 % (2.0-8.0); NEUTROPHILS ABSOLUTE AUTO 4.14 10^3/uL (2.50-7.00); NEUTROPHILS PERCENT AUTO 69.3 % (50.0-70.0); PLATELET COUNT,PLT 224 10^3/uL (150-400); RED BLOOD CELL COUNT 3.31 10^6/uL (3.80-5.50); WHITE BLOOD CELL COUNT,WBC 5.97 10^3/uL (5.00-10.00)
[2024-08-16 14:37] VITALS: BP 117/65; PULSE 72
[2024-08-16 14:43] LABS: ALBUMIN 3.09 g/dL (3.40-5.00); BILIRUBIN TOTAL 0.8 mg/dL (0.2-1.0); C-REACTIVE PROTEIN 2.33 mg/dL (0.00-0.50); CARBON DIOXIDE,CO2 29.5 mmol/L (21.0-32.0); CREATININE 0.95 mg/dL (0.51-1.17); EST CRCL DRUG DOSING (CG) 38.25 mL/min; POTASSIUM,K 4.5 mmol/L (3.5-5.1); PROTEIN TOTAL,TP 6.5 g/dL (6.4-8.2)
[2024-08-16] MEDS: Iopamidol 755 Mg/ML 100 ML Bottle IV ONE (15:25)
[2024-08-16] MEDS: Sodium Chloride 0.9% 50 ML IV SCH (15:25)
[2024-08-16] MEDS: cefTRIAXone 1 GM Vial IVPUSH ONE (15:32)
[2024-08-16] MEDS: Acetaminophen 325 MG Tab PO ONE (15:45)
== END 2024-08-16 17:27 ==
LOC: KA.ED 14:09
DX: L03.116 Cellulitis of left lower limb (principal); I12.9 Hypertensive chronic kidney disease with stage 1 through stage 4 chronic kidney disease, or unspecified chronic kidney disease; N18.30 Chronic kidney disease, stage 3 unspecified; K21.9 Gastro-esophageal reflux disease without esophagitis; Z95.0 Presence of cardiac pacemaker; Z79.899 Other long term (current) drug therapy; Z79.01 Long term (current) use of anticoagulants; Z88.5 Allergy status to narcotic agent; Z88.1 Allergy status to other antibiotic agents
CPT/HCPCS: 36415; 73701-LT; 80053; 83605; 85025; 86140; 87040; 96374; 99284-25; A9270-GY; J0696; Q9967